=== PATIENT | female | born 1995 | race Caucasian/White ===

== ENCOUNTER 2023-10-17 10:37 | Day surgery (SDC) | payer OTHER ==
[~2023-10-17] VITALS: Ht 172.7 cm; Wt 96.5 kg
[~2023-10-17 10:37] MED LIST: ADDE1TAB14 PO; LIDOCAINE 2% 100MG/5ML SDV (FOR ANES.) As Ordered ONE; MONT10TA97 PO; ONDANSETRON 4MG 2ML VIAL As Ordered ONE; PROA1AER2 INH; ROCURONIUM BROMIDE 50MG/5ML VIAL As Ordered ONE; SUGAMMADEX SODIUM 500 MG/5 ML VIAL (BRIDION) As Ordered ONE; propofoL 200 MG/20 ML VIAL As Ordered ONE
[2023-10-17] MEDS ORDERED: MIDAZOLAM INJ 2MG/2ML VIAL As Ordered ONE (11:20)
[2023-10-17] MEDS ORDERED: fentaNYL 250 MCG/5 ML INJECTION As Ordered ONE (11:20)
[2023-10-17] MEDS ORDERED: LR 1,000 ML IV SCH (12:20)
[2023-10-17] MEDS: SCOPOLAMINE 1MG TRANSDERMAL PATCH TOP ONE (12:31)
[2023-10-17] MEDS: ceFAZolin SOD 2 GM in IV 1 EA IV ONE (13:00)
[2023-10-17] MEDS: HEPARIN SOD (PORCINE) 5000UNITS/ML 1ML VIAL/SYRINGE SQ ONE (13:09)
[2023-10-17] MEDS ORDERED: ACETAMINOPHEN 1000MG 100ML IV BAG As Ordered ONE (13:10)
[2023-10-17] MEDS: GENTAMICIN SULF 80MG/2ML VIAL As Ordered ONE (13:28)
[2023-10-17] MEDS ORDERED: HYDROmorphone HCL 2MG/ML 1ML VIAL As Ordered ONE (13:29)
[2023-10-17] MEDS ORDERED: oxyCODONE 5MG TAB PO PRN (15:05)
[2023-10-17] MEDS ORDERED: fentaNYL 100 MCG/2 ML INJECTION IV PRN (15:05)
[2023-10-17] MEDS ORDERED: HYDROMORPHONE HCL 0.5 MG/ 0.5 ML SYRINGE IV PRN (15:05)
[2023-10-17] MEDS: ONDANSETRON 4MG 2ML VIAL IV PRN ×2 (16:14→20:15)
[2023-10-17 16:30] VITALS: BP 138/88; TEMP 97.8; O2SAT 98
[2023-10-17 17:00] VITALS: BP 138/91; TEMP 97; O2SAT 98
[2023-10-17 17:30] VITALS: BP 135/92; TEMP 97.2; O2SAT 97
[2023-10-17] MEDS: PROMETHAZINE 25MG/ML 1ML VIAL IV ONE (17:52)
[2023-10-17] MEDS: LR 1,000 ML IV SCH ×2 (17:53→19:43)
[2023-10-17] MEDS ORDERED: PROMETHAZINE 25MG/ML 1ML VIAL IV ONE (17:55)
[2023-10-17 18:30] VITALS: BP 124/79; TEMP 97.2; O2SAT 96
[2023-10-17] MEDS: traMADol 50 MG TAB PO PRN (19:01)
[2023-10-17 19:28] VITALS: BP 134/93; TEMP 97.5; O2SAT 99
[2023-10-17] MEDS: PERCOCET 5MG/325MG TAB PO PRN (20:15)
[2023-10-17] MEDS: ceFAZolin SOD 1 GM in D5W MINI-BAG PLUS 50 ML IV SCH (20:15)
[2023-10-17] MEDS: ADDERALL 5 MG TAB PO SCH (20:15)
[2023-10-17 20:30] VITALS: BP 132/90; TEMP 97.5; O2SAT 99
[2023-10-18 01:25] VITALS: BP 110/56; TEMP 97.9; O2SAT 97
[2023-10-18 05:30] VITALS: BP 110/57; TEMP 98.2; O2SAT 97
[2023-10-18 09:41] VITALS: BP 114/61; TEMP 97.9; O2SAT 97
[2023-10-18] MEDS: MONTELUKAST 10 MG TAB PO SCH (09:55)
[2023-10-18 09:59] VITALS: BP 114/61; O2SAT 97
[2023-10-18] MEDS: ACETAMINOPHEN TAB 650MG DOSE (2X325MG) PO PRN (11:25)
[2023-10-18] MEDS ORDERED: PERCOCET PO (12:15)
== END 2023-10-18 13:00 | disposition home or self-care (01) ==
LOC: M SDC 10:37 → M MS5PR 10:38
PROVIDERS: ADMIT Plastic Surgery Surgery of the Hand; ATTEND Plastic Surgery Surgery of the Hand
DX: M54.07 Panniculitis affecting regions of neck and back, lumbosacral region (principal); L90.5 Scar conditions and fibrosis of skin; D23.5 Other benign neoplasm of skin of trunk; G43.909 Migraine, unspecified, not intractable, without status migrainosus; J45.909 Unspecified asthma, uncomplicated; Z79.51 Long term (current) use of inhaled steroids; Z79.899 Other long term (current) drug therapy; F90.9 Attention-deficit hyperactivity disorder, unspecified type; F41.9 Anxiety disorder, unspecified; F32.A Depression, unspecified
CPT/HCPCS: 11402; 15830; 15847; 81025; 87635; 88300; 88305; 96365; 96366; 96375; 96376; C9290; G0378; J0131; J0665; J0690; J1100; J1170; J1580; J2250; J2405; J2550; J3010